=== PATIENT | male | born 1945 | race Caucasian/White ===

== ENCOUNTER 2018-11-15 21:04 | Emergency (ER) | payer MEDICARE, OTHER, SELFPAY ==
[2018-11-15 21:07] VITALS: BP 137/78; PULSE 72; RESP 18; TEMP 36.5; O2SAT 98
--- NOTE | 2018-11-15 21:12 | DI.US.S_ITS ---
PROCEDURE: US PERIPH VENOUS LOW EXTREM LT INDICATIONS: SWELLING LLE, 5 WKS POST OP TECHNIQUE: Real-time imaging, as well as color and pulse Doppler interrogation, were performed of the lower extremity deep veins from the inguinal ligament to the popliteal fossa. COMPARISON: None. FINDINGS: The common femoral, femoral and popliteal veins are normally compressible, and free of intraluminal thrombus. Color and pulse Doppler demonstrate normal phasic intraluminal flow. There is normal augmentation response to distal compression maneuver. IMPRESSION: No evidence of deep vein thrombosis involving the left lower extremity. Dictated by: Stephanie Olmstead MD, PhD on 11/15/2018 at 21:57 Approved by: Stephanie Olmstead MD, PhD on 11/15/2018 at 21:59
[2018-11-15 22:19] VITALS: BP 144/76; PULSE 72; RESP 19; O2SAT 99
[2018-11-15 23:00] VITALS: BP 133/69; PULSE 68; O2SAT 96
--- NOTE | 2018-11-15 23:13 | ED.EXTPRO ---
HPI - Extremity Problem General Chief complaint: Extremity Problem,Nontraumatic Stated complaint: LEFT LEG SWELLING AND HEAT Time Seen by Provider: 11/15/18 23:12 Related Data Home Medications Medication Instructions Recorded Confirmed aspirin 81 mg PO QDAY #0 08/26/16 Previous Rx's Medication Instructions Recorded atorvastatin [Lipitor] 20 mg PO HS #90 tab 09/08/16 tamsulosin [Flomax] 0.4 mg PO QDAY #30 cap 01/30/17 Allergies Allergy/AdvReac Type Severity Reaction Status Date / Time No Known Drug Allergies Allergy Verified 11/15/18 21:11 PFS Social History Smoking Status: Never smoker Social History Smoking Status: Never smoker Exam Initial Vital Signs Initial Vital Signs: Vital Signs Temperature 97.7 F 11/15/18 21:07 Pulse Rate 72 11/15/18 21:07 Respiratory Rate 18 11/15/18 21:07 Blood Pressure 137/78 11/15/18 21:07 Pulse Oximetry 98 11/15/18 21:07 Course Orders Ordered: ED Orders 11/15/18 21:12 US periph venous low extrem lt Stat Vital Signs - 8 hr 11/15/18 21:07 11/15/18 22:19 11/15/18 23:00 Temperature 97.7 F Pulse Rate 72 72 68 Respiratory Rate 18 19 Blood Pressure 137/78 Blood Pressure [Left Arm] 144/76 H 133/69 Pulse Oximetry 98 99 96 Discharge Plan Departure Patient Disposition: Home Clinical Impression: Lymphedema of left lower extremity Instructions: Lymphedema Activity Restrictions/Additional Instructions: Wear your compression stockings as needed when her up and active. You can take them off at night if you wish. Discuss the diagnosis of lymphedema with your surgeon, you have no evidence of DVT. Return to the ER as needed. Prescriptions: No Action aspirin 81 MG tablet,chewable 81 mg PO QDAY Qty: 0 RF: 0 atorvastatin [Lipitor] 20 MG tablet 20 mg PO HS Qty: 90 RF: 3 tamsulosin [Flomax] 0.4 MG capsule,extended release 24hr 0.4 mg PO QDAY Qty: 30 RF: 5 Referrals: Jay Murray MD [Primary Care Provider] -
--- NOTE | 2018-11-15 23:27 | ED.EXTPRO ---
HPI - Extremity Problem General Chief complaint: Extremity Problem,Nontraumatic Stated complaint: LEFT LEG SWELLING AND HEAT Time Seen by Provider: 11/15/18 23:12 Source: patient Mode of arrival: ambulatory Limitations: no limitations History of Present Illness HPI Narrative: The patient underwent prostate surgery 5 weeks ago, he has prostate cancer, he also underwent lymph node dissection. He had a Vanessa in after the surgery. He had scrotal edema for more than 2 weeks. The edema has resolved. He has developed swelling to the left lower extremity. He has no right lower extremity swelling. he has a history of vascular insufficiency. He has no associated calf pain with swelling. He has no numbness or tingling to the legs. He denies chest pain. is no dyspnea. He denies hemoptysis. He has no history of DVT or PE. He has no history of CHF. He has no associated history of pulmonary edema, he has no orthopnea or persistent edema. The swelling the left leg seems improved. Related Data Home Medications Medication Instructions Recorded Confirmed aspirin 81 mg PO QDAY #0 08/26/16 Previous Rx's Medication Instructions Recorded atorvastatin [Lipitor] 20 mg PO HS #90 tab 09/08/16 tamsulosin [Flomax] 0.4 mg PO QDAY #30 cap 01/30/17 Allergies Allergy/AdvReac Type Severity Reaction Status Date / Time No Known Drug Allergies Allergy Verified 11/15/18 21:11 Review of Systems Review of Systems ROS Unobtainable: All systems reviewed & are unremarkable except as noted in HPI and below Constitutional Denies chills, Denies fever(s), Denies lethargy and Denies weakness Cardiovascular Denies chest pain, Denies irregular heart rhythm, Denies lightheadedness, Denies palpitations, Denies dyspnea and Denies orthopnea Respiratory Denies cough, Denies hemoptysis, Denies dyspnea and Denies wheezing Gastrointestinal Gastrointestinal: Denies abdominal pain, Denies change in bowel habits, Denies diarrhea, Denies nausea and Denies vomiting Musculoskeletal Reports as per HPI (Left leg edema.), Denies back pain and Denies numbness Integumentary/Breasts Denies pruritus, Denies erythema, Denies rash and Denies wounds Neurologic Denies numbness and Denies weakness Endocrine Denies palpitations Allergic/Immunologic Denies wheezing [facility] Medical History (Updated 11/15/18 @ 23:32 by Allen Lainez MD) Hyperlipidemia (Acute) Prostate cancer (Acute) Vascular insufficiency (Acute) Surgical History (Updated 11/15/18 @ 23:32 by Allen Lainez MD) History of prostate surgery (Acute) Social History Smoking Status: Never smoker Social History Smoking Status: Never smoker Exam Initial Vital Signs Initial Vital Signs: Vital Signs Temperature 97.7 F 11/15/18 21:07 Pulse Rate 72 11/15/18 21:07 Respiratory Rate 18 11/15/18 21:07 Blood Pressure 137/78 11/15/18 21:07 Pulse Oximetry 98 11/15/18 21:07 Const General: cooperative and well developed Nutritional Appearance: well nourished Orientation: alert, awake, oriented x3 and not confused Neck Neck: No JVD Chest Chest: normal inspection of the chest Resp Effort & Inspection: normal respiratory effort, able to speak in complete sentences, no respiratory distress and no use of accessory muscles Auscultation: clear to auscultation bilaterally, no rales, no rhonchi and no wheezes Cardio Rate: regular rate Rhythm: regular rhythm Heart Sounds: no click, no gallops, no murmurs and no rubs Pulses: normal peripheral pulses GI Inspection: non-distended Palpation: soft, no hepatosplenomegaly and No tender Auscultation: normal bowel sounds Skin General: no rashes or lesions noted Extrem General: full ROM, no clubbing, cyanosis or edema, no pedal edema and no calf tenderness (Negative Homans sign) Course Orders Ordered: ED Orders 11/15/18 21:12 US periph venous low extrem lt Stat Vital Signs - 8 hr 11/15/18 21:07 11/15/18 22:19 11/15/18 23:00 Temperature 97.7 F Pulse Rate 72 72 68 Respiratory Rate 18 19 Blood Pressure 137/78 Blood Pressure [Left Arm] 144/76 H 133/69 Pulse Oximetry 98 99 96 MDM - Extremity (Nontraumatic) Imaging Data Peripheral venous ultrasound:: Radiologist's impression: [address] [address] Ultrasound Report Signed Patient: Mathew Sewell#: [id number] : 5Acct:[id number] Age/Sex: 73 / MDate of Service: 11/15/18 Loc: ED Accession Number: [id number] Procedure: US periph venous low extrem lt Ordering Provider: Allen Lainez M.D. PROCEDURE: US PERIPH VENOUS LOW EXTREM LT INDICATIONS: SWELLING LLE, 5 WKS POST OP TECHNIQUE: Real-time imaging, as well as color and pulse Doppler interrogation, were performed of the lower extremity deep veins from the inguinal ligament to the popliteal fossa. COMPARISON: None. FINDINGS: The common femoral, femoral and popliteal veins are normally compressible, and free of intraluminal thrombus. Color and pulse Doppler demonstrate normal phasic intraluminal flow. There is normal augmentation response to distal compression maneuver. IMPRESSION: No evidence of deep vein thrombosis involving the left lower extremity. Dictated by: Stephanie Olmstead MD, PhD on 11/15/2018 at 21:57 Approved by: Stephanie Olmstead MD, PhD on 11/15/2018 at 21:59 [facility] Narrative Medical decision making narrative: The patient has had swelling, seemingly increasing, following his prostate surgery 5 weeks ago. After the surgery, which included a lymph node dissection, he also has significant scrotal edema. the left leg swelling has improved since his surgeons raised concern of a DVT. My exam reveals unlikely DVT. The ultrasound is negative. I suspect he has lymphedema, possibly related to the lymph node dissection. I suggested he talk to his surgeon about the possibility. Discharge Plan Departure Patient Disposition: Home Clinical Impression: Lymphedema of left lower extremity Discharge Date/Time: 11/15/18 23:30 Instructions: Lymphedema Activity Restrictions/Additional Instructions: Wear your compression stockings as needed when her up and active. You can take them off at night if you wish. Discuss the diagnosis of lymphedema with your surgeon, you have no evidence of DVT. Return to the ER as needed. Prescriptions: No Action aspirin 81 MG tablet,chewable 81 mg PO QDAY Qty: 0 RF: 0 atorvastatin [Lipitor] 20 MG tablet 20 mg PO HS Qty: 90 RF: 3 tamsulosin [Flomax] 0.4 MG capsule,extended release 24hr 0.4 mg PO QDAY Qty: 30 RF: 5 Referrals: Jay Murray MD [Primary Care Provider] -
--- NOTE | 2018-11-15 23:37 | ED_ITS ---
HPI - Extremity Problem General Chief complaint: Extremity Problem,Nontraumatic Stated complaint: LEFT LEG SWELLING AND HEAT Time Seen by Provider: 11/15/18 23:12 Source: patient Mode of arrival: ambulatory Limitations: no limitations History of Present Illness HPI Narrative: The patient underwent prostate surgery 5 weeks ago, he has prostate cancer, he also underwent lymph node dissection. He had a Vanessa in after the surgery. He had scrotal edema for more than 2 weeks. The edema has resolved. He has developed swelling to the left lower extremity. He has no right lower extremity swelling. he has a history of vascular insufficiency. He has no associated calf pain with swelling. He has no numbness or tingling to the legs. He denies chest pain. is no dyspnea. He denies hemoptysis. He has no history of DVT or PE. He has no history of CHF. He has no associated history of pulmonary edema, he has no orthopnea or persistent edema. The swelling the left leg seems improved. Related Data Home Medications Medication Instructions Recorded Confirmed aspirin 81 mg PO QDAY #0 08/26/16 Previous Rx's Medication Instructions Recorded atorvastatin [Lipitor] 20 mg PO HS #90 tab 09/08/16 tamsulosin [Flomax] 0.4 mg PO QDAY #30 cap 01/30/17 Allergies Allergy/AdvReac Type Severity Reaction Status Date / Time No Known Drug Allergies Allergy Verified 11/15/18 21:11 Review of Systems Review of Systems ROS Unobtainable: All systems reviewed & are unremarkable except as noted in HPI and below Constitutional Denies chills, Denies fever(s), Denies lethargy and Denies weakness Cardiovascular Denies chest pain, Denies irregular heart rhythm, Denies lightheadedness, Denies palpitations, Denies dyspnea and Denies orthopnea Respiratory Denies cough, Denies hemoptysis, Denies dyspnea and Denies wheezing Gastrointestinal Gastrointestinal: Denies abdominal pain, Denies change in bowel habits, Denies diarrhea, Denies nausea and Denies vomiting Musculoskeletal Reports as per HPI (Left leg edema.), Denies back pain and Denies numbness Integumentary/Breasts Denies pruritus, Denies erythema, Denies rash and Denies wounds Neurologic Denies numbness and Denies weakness Endocrine Denies palpitations Allergic/Immunologic Denies wheezing [facility] Medical History (Updated 11/15/18 @ 23:32 by Allen Lainez MD) Hyperlipidemia (Acute) Prostate cancer (Acute) Vascular insufficiency (Acute) Surgical History (Updated 11/15/18 @ 23:32 by Allen Lainez MD) History of prostate surgery (Acute) Social History Smoking Status: Never smoker Social History Smoking Status: Never smoker Exam Initial Vital Signs Initial Vital Signs: Vital Signs Temperature 97.7 F 11/15/18 21:07 Pulse Rate 72 11/15/18 21:07 Respiratory Rate 18 11/15/18 21:07 Blood Pressure 137/78 11/15/18 21:07 Pulse Oximetry 98 11/15/18 21:07 Const General: cooperative and well developed Nutritional Appearance: well nourished Orientation: alert, awake, oriented x3 and not confused Neck Neck: No JVD Chest Chest: normal inspection of the chest Resp Effort & Inspection: normal respiratory effort, able to speak in complete sentences, no respiratory distress and no use of accessory muscles Auscultation: clear to auscultation bilaterally, no rales, no rhonchi and no wheezes Cardio Rate: regular rate Rhythm: regular rhythm Heart Sounds: no click, no gallops, no murmurs and no rubs Pulses: normal peripheral pulses GI Inspection: non-distended Palpation: soft, no hepatosplenomegaly and No tender Auscultation: normal bowel sounds Skin General: no rashes or lesions noted Extrem General: full ROM, no clubbing, cyanosis or edema, no pedal edema and no calf tenderness (Negative Homans sign) Course Orders Ordered: ED Orders 11/15/18 21:12 US periph venous low extrem lt Stat Vital Signs - 8 hr 11/15/18 21:07 11/15/18 22:19 11/15/18 23:00 Temperature 97.7 F Pulse Rate 72 72 68 Respiratory Rate 18 19 Blood Pressure 137/78 Blood Pressure [Left Arm] 144/76 H 133/69 Pulse Oximetry 98 99 96 MDM - Extremity (Nontraumatic) Imaging Data Peripheral venous ultrasound:: Radiologist's impression: [address] [address] Ultrasound Report Signed Patient: Mathew Sewell#: [id number] : 5Acct:[id number] Age/Sex: 73 / MDate of Service: 11/15/18 Loc: ED Accession Number: [id number] Procedure: US periph venous low extrem lt Ordering Provider: Allen Lainez M.D. PROCEDURE: US PERIPH VENOUS LOW EXTREM LT INDICATIONS: SWELLING LLE, 5 WKS POST OP TECHNIQUE: Real-time imaging, as well as color and pulse Doppler interrogation, were performed of the lower extremity deep veins from the inguinal ligament to the popliteal fossa. COMPARISON: None. FINDINGS: The common femoral, femoral and popliteal veins are normally compressible, and free of intraluminal thrombus. Color and pulse Doppler demonstrate normal phasic intraluminal flow. There is normal augmentation response to distal compression maneuver. IMPRESSION: No evidence of deep vein thrombosis involving the left lower extremity. Dictated by: Stephanie Olmstead MD, PhD on 11/15/2018 at 21:57 Approved by: Stephanie Olmstead MD, PhD on 11/15/2018 at 21:59 [facility] Narrative Medical decision making narrative: The patient has had swelling, seemingly increasing, following his prostate surgery 5 weeks ago. After the surgery, which included a lymph node dissection, he also has significant scrotal edema. the left leg swelling has improved since his surgeons raised concern of a DVT. My exam reveals unlikely DVT. The ultrasound is negative. I suspect he has lymphedema, possibly related to the lymph node dissection. I suggested he talk to his surgeon about the possibility. Discharge Plan Departure Patient Disposition: Home Clinical Impression: Lymphedema of left lower extremity Discharge Date/Time: 11/15/18 23:30 Instructions: Lymphedema Activity Restrictions/Additional Instructions: Wear your compression stockings as needed when her up and active. You can take them off at night if you wish. Discuss the diagnosis of lymphedema with your surgeon, you have no evidence of DVT. Return to the ER as needed. Prescriptions: No Action aspirin 81 MG tablet,chewable 81 mg PO QDAY Qty: 0 RF: 0 atorvastatin [Lipitor] 20 MG tablet 20 mg PO HS Qty: 90 RF: 3 tamsulosin [Flomax] 0.4 MG capsule,extended release 24hr 0.4 mg PO QDAY Qty: 30 RF: 5 Referrals: Jay Murray MD [Primary Care Provider] -
== END 2018-11-15 23:30 | disposition home or self-care (01) ==
PROVIDERS: Emergency Provider Emergency Medicine; PCP Family Medicine
DX: I89.0 Lymphedema, not elsewhere classified (principal)
CPT/HCPCS: 93971; 99282; 99283

== ENCOUNTER → 2020-04-12 10:30 | Outpatient (CLI) | payer MEDICARE, OTHER, SELFPAY ==
--- NOTE | 2020-04-12 | DI.MRI.S_ITS ---
PROCEDURE: MR ABDOMEN WO/W CON INDICATIONS: Malignant neoplasm of prostate TECHNIQUE: Coronal HASTE, axial 2D FLASH in- and [id number]; axial breath-hold T2 FSE. Dynamic axial VIBE during the administration of contrast; post-contrast coronal VIBE or 2D FLASH with fat saturation from the hepatic dome to the iliac crests. Optional diffusion weighted imaging and ADC may be performed. COMPARISON: [facility], [place], [place] BONE SCAN WHOLE BODY, 10/21/2017, 11:11. FINDINGS: Image quality: Excellent. Lung bases: No basal pleural effusions. Heart size is normal. Solid organs: Liver is normal in size and enhancement. Gallbladder appears normal. Biliary system is non dilated. Pancreas is normal in morphology. Spleen is normal in size and enhancement. No adrenal nodules. Both kidneys demonstrate normal size and enhancement, without hydronephrosis. Nodes and vessels: No retroperitoneal or mesenteric adenopathy by size criteria. Aorta and inferior vena cava are normal in size. Bowel and peritoneum: Unenhanced bowel loops are normal in caliber. No free fluid. Bones and soft tissues: No ventral hernias. Bone marrow is normal in overall signal. IMPRESSION: No evidence of metastatic disease, no adenopathy found. No osseous lesions seen. Dictated by: Tone Martini M.D. on 04/12/2020 at 13:29 Approved by: Tone Martini M.D. on 04/12/2020 at 13:32
== END ==
PROVIDERS: PCP Family Medicine; Referring Provider Family Medicine; Visit Provider Family Medicine
DX: C61 Malignant neoplasm of prostate (principal)
CPT/HCPCS: 74183